=== PATIENT | male | born 1990 | race Two or more races ===

== ENCOUNTER 2022-07-01 13:28 | Emergency (ER) | payer SELFPAY ==
[2022-07-01] MEDS ORDERED: Lidocaine 1% 10 ML MDV ONE (13:46)
[2022-07-01] MEDS ORDERED: Sodium Chloride 0.9% 10 ML Syringe FLUSH PRN (13:47)
[2022-07-01] MEDS ORDERED: HYDROmorphone 1 MG/ML Syringe IVPUSH ONE (13:48)
[2022-07-01] MEDS ORDERED: ceFAZolin 2 GM in Sodium Chloride 0.9% 50 ML IV ONE ×2 (13:49→14:15)
[2022-07-01] MEDS ORDERED: ceFAZolin 1 GM Vial ONE (13:59)
[2022-07-01] MEDS ORDERED: HYDROmorphone 0.5 MG/0.5 ML Syringe ONE (15:01)
[2022-07-01] MEDS ORDERED: HYDROmorphone 0.5 MG/0.5 ML Syringe IVPUSH ONE ×2 (15:04→15:58)
[2022-07-01] MEDS ORDERED: Lidocaine 1% 10 ML MDV INJECT ONE (15:07)
== END 2022-07-01 16:20 | disposition home or self-care (01) ==
LOC: JD.ED 13:28
DX: S62.630B Displaced fracture of distal phalanx of right index finger, initial encounter for open fracture (principal); W23.0XXA Caught, crushed, jammed, or pinched between moving objects, initial encounter
CPT/HCPCS: 12001; 73140; 96365; 96375; 96376; 99283; J0690; J1170; J3490